=== PATIENT | male | born 1985 | race African-American/Black ===

== ENCOUNTER 2016-12-21 02:45 | Inpatient (IN) | payer MEDICARE ==
[~2016-12-21] VITALS: Ht 175.3 cm; Wt 69.4 kg
[2016-12-21 02:53] VITALS: BP 127/80
[2016-12-21] MEDS ORDERED: RISP0.5T PO (02:57)
[2016-12-21] MEDS ORDERED: [UNRECOGNIZED DRUG - CODE] PO (02:57)
--- NOTE | 2016-12-21 03:10 | NUR ---
Patient ambulated to bed 03.
--- NOTE | 2016-12-21 03:24 | NUR ---
[place] [employer] AT BEDSIDE EVALUATING PT.
[2016-12-21 03:25] LABS: HEMATOCRIT 46.4 % (36-52); HEMOGLOBIN 15.2 g/dL (12.0-18.0); MEAN CORPUSCULAR HEMOGLOBIN 31 pg (27-31); MEAN CORPUSCULAR HGB CONC 33 g/dL (33-37); MEAN CORPUSCULAR VOLUME 96 fL (80-94); PLATELET COUNT (AUTO) 263 K/uL (140-450); RED BLOOD CELL COUNT(AUTO) 4.83 MIL/uL (4.20-6.10); RED CELL DISTRIBUTION WIDTH 12.6 % (11.6-13.7); WHITE BLOOD COUNT (AUTO) 5.3 K/uL (4.8-10.8)
--- NOTE | 2016-12-21 03:26 | NUR ---
31 Y/O M W/C/O HEARING VOICES X2 DAYS "VOICES ARGURING WITH EACH OTHER" SUICIDAL IDEATION. DENIES ANY PAIN, VSS. ER MD MADE AWARE.HX SCHIZOPHRENIA, DEPRESSION
[2016-12-21 03:35] LABS: ANION GAP 12.9 (8-16); CARBON DIOXIDE 27.9 mmol/L (21-32); CHLORIDE 102 mmol/L (98-107); CREATININE 1.1 mg/dL (0.7-1.3); EOSINOPHILS % (MANUAL) 5 % (0-4); GFR ARICAN-AMERICAN 100 mL/min (>90); GLUCOSE 106 mg/dL (74-106); LYMPHOCYTES % (MANUAL) 59 % (20-46); MONOCYTES % (MANUAL) 3 % (5-12); POTASSIUM 3.8 mmol/L (3.5-5.1); SODIUM SERUM 139 mmol/L (136-145); UREA NITROGEN, BLOOD 15 mg/dL (7-18)
[2016-12-21 03:41] LABS: ALBUMIN 4.9 g/dL (3.4-5.0); ASPARTATE AMINOTRANSFERASE 22 U/L (15-37); SALICYLATE 5.1 mg/dL (2.8-20.0); TOTAL BILIRUBIN 0.5 mg/dL (0.0-1.0)
--- NOTE | 2016-12-21 03:41 | NUR ---
Pt placed on 5150 hold by [place] [employer] by Officer Aidan.
[2016-12-21 03:43] LABS: ACETAMINOPHEN < 0.5 ug/ml (10-30)
[2016-12-21] MEDS ORDERED: risperiDONE 1 MG TAB PO SCH (03:50)
[2016-12-21] MEDS ORDERED: OXcarbazepine 150 MG TAB PO SCH (03:50)
--- NOTE | 2016-12-21 03:59 | NUR ---
ALL BELONGS WITH [facility]
--- NOTE | 2016-12-21 04:03 | NUR ---
PT AMB WITH EMT TO [facility].
[2016-12-21 04:14] LABS: APPEARANCE,URINE CLEAR (CLEAR); BILIRUBIN,URINE NEGATIVE (NEGATIVE); BLOOD, URINE TRACE-I (NEGATIVE); COLOR,URINE YELLOW (YELLOW); LEUKOCYTE ESTERASE ,URINE NEGATIVE (NEGATIVE); NITRITE, URINE NEGATIVE (NEGATIVE); UGLUCOSE NEGATIVE (NEGATIVE)
--- NOTE | 2016-12-21 04:19 | NUR ---
MEDS NOT AVAILABLE ON FLOOR. HOUSE SUP NOTIFIED.
[2016-12-21 04:20] LABS: BARBITURATE, URINE NEG. ng/ml (NEG <=200); BENZODIAZEPINE, URINE NEG. ng/mL (NEG <=200); CANNABINOID, URINE NEG. ng/mL (NEG <=50); COCAINE, URINE NEG. ng/mL (NEG <=300); OPIATE, URINE NEG. ng/mL (NEG <=2000); PHENCYCLIDINE SCREEN,URINE NEG. ng/mL (NEG <=25)
[2016-12-21 04:26] LABS: RBC,URINE 3-10 (FEW) /HPF (0-5); URINE AMORPHOUS URATE 3+ /HPF (None Seen); WBC,URINE 0-5 (RARE) /HPF (0-5)
[2016-12-21] MEDS ORDERED: risperiDONE 1 MG TAB ONE (04:43)
--- NOTE | 2016-12-21 04:45 | NUR ---
TRILEPTAL NOT AVAILABLE IN HOSPITAL. ER NOTIFIED. PER DR PINEDA TO CALL PHARMACY TO REFILL MED. HOUSE SUP NOTIFIED.
--- NOTE | 2016-12-21 05:11 | NUR ---
PT RESTING IN BED, CALM, NO S/S OF DISTRESS NOTED AT THE MOMENT, WILL CONT TO MONITOR.
--- NOTE | 2016-12-21 06:34 | NUR ---
Patient will be admitted to care of DR DOWNING. Admited to TELEMETRY. Will go to room 110B. Belongings list completed. Report to SHARLA CHAVIRA.
[2016-12-21] MEDS ORDERED: NACL 0.9% 1,000 ML IV SCH (06:37)
[2016-12-21] MEDS ORDERED: HYDROcodone/APAP 7.5/325 MG 1 TAB PO PRN ×2 (06:40→11:35)
[2016-12-21] MEDS ORDERED: ONDANSETRON 4 MG/2 ML VIAL IVP PRN ×2 (06:40→11:35)
[2016-12-21] MEDS ORDERED: ACETAMINOPHEN 325 MG TAB PO PRN ×2 (06:40→11:35)
[2016-12-21 07:10] LABS: PROTHROMBIN TIME 10.7 secs (10.8-13.4)
--- NOTE | 2016-12-21 07:10 | NUR ---
Pt report given to SHARLA BERGMAN. Transfer of care at this time.
--- NOTE | 2016-12-21 07:13 | NUR ---
RECEIVED REPORT TO SHARLA GALICIA.
--- NOTE | 2016-12-21 07:15 | NUR ---
X RAY AT BEDSIDE.
[2016-12-21 07:17] LABS: CHOL/HDL RATIO 3.3 (1-4.5); FREE T4 (FREE THYROXINE) 1.04 ng/dL (0.76-1.46); MAGNESIUM 1.8 mg/dL (1.8-2.4); PHOSPHORUS 4.3 mg/dL (2.5-4.9); THYROID STIMULATING HORMONE 0.88 uIU/mL (0.34-3.74)
--- NOTE | 2016-12-21 07:30 | NUR ---
RECEIVED REPORT FROM THE SALES DEVELOPMENT EXECUTIVE NURSE. PT NOT ON UNIT YET, STILL IN ER. WILL GET ROOM READY AND AWAIT PT'S ARRIVAL.
--- NOTE | 2016-12-21 07:49 | NUR ---
Residents evaluating patient at bedside.
--- NOTE | 2016-12-21 08:05 | NUR ---
PT ARRIVED ON THE UNIT IN A RNEY WITH 2 ER NURSES. PT AMBULATED FROM GURNEY TO BED. TELE MONITOR ADMINISTERED. SKIN INTACT. MRSA SCREENING DONE. V/S WITHIN NORMAL RANGE. ALLERGY BAND ADMINISTERED. BROWN SOCKS ON. IV SITE ON R AC 22G SL. EVERYTHING REMOVED FROM ROOM. NO PERSONAL BELONGINGS. IT IS WITH SECURITY. SITTER IN THE ROOM. PT JUST WANTS TO SLEEP. WILL START ON ADMISSION PROCESS.
[2016-12-21 09:00] VITALS: BP 100/62
[2016-12-21] MEDS ORDERED: DOCUSATE SODIUM 100 MG GELCAP PO SCH (09:00)
[2016-12-21] MEDS ORDERED: PANTOPRAZOLE 40 MG INJ VIAL IVP SCH (09:00)
[2016-12-21] MEDS ORDERED: NICOTINE TRANSD SYS 14 MG/24 HR PATCH TD SCH (09:00)
--- NOTE | 2016-12-21 09:18 | NUR ---
ADMINISTERED MORNING MED. PT REFUSED NICOTINE PATCH AND COLACE. SPOKE TO MD CEBALLOS FLUIDS. MD WILL D/C ORDER. SITTER IN THE ROOM. WILL CONTINUE TO MONITOR PT.
--- NOTE | 2016-12-21 11:07 | NUR ---
PT SLEEPING. SITTER IN THE ROOM. NO SIGNS OF DISTRESS. WILL CONTINUE TO MONITOR PT.
--- NOTE | 2016-12-21 11:28 | NUR ---
Social Service Note: Per Misty from [facility] , patient may go to [facility] [address] [place] [address] [address], accepting physician is , bed number 1012 C, phone number for report , Misty stated they would like patient to be transfer to their facility as soon as possible, charge nurse Merlene and case planner Shin wolfe.
--- NOTE | 2016-12-21 11:53 | NUR ---
PT SLEEPING SOUNDLY. WOKE PT UP TO GET V/S. PT COOPERATIVE. DENIES HEARING VOICES. JUST SLEEPY. SITTER AT BEDSIDE. WILL CONTINUE TO MONITOR PT.
[2016-12-21 12:00] VITALS: BP 128/72
--- NOTE | 2016-12-21 12:12 | NUR ---
CM NOTE INITIAL REVIEW FAXED TO [facility] (FAX# [phone], C: [phone]) AND [facility] (FAX# [phone], C: [phone], OPT. 1, 3, 7).
--- NOTE | 2016-12-21 13:37 | NUR ---
DR. RIOS WAS HERE EARLIER. ASSESSED PT. AGREED, PT SHOULD GO TO [facility]. D/C IN PLACE. WILL START D/C PROCESS.
--- NOTE | 2016-12-21 14:57 | NUR ---
CM NOTE PATIENT BEING PICKED UP VIA GURNEY BY [facility] GOING TO [facility], RM 1012C. ETA 1600. DR. ONEILL & BERNIE RN MADE AWARE. AUTH# PROVIDED BY [facility] - #[id number]*PTR
--- NOTE | 2016-12-21 15:00 | NUR ---
WENT OVER D/C INSTRUCTIONS WITH PT. ANSWERED ALL QUESTIONS. PT VERBALIZED UNDERSTANDING. REMOVE IV, CANNULA INTACT. NO BLEEDING NOTED. REMOVED ID BANDS. CALLED SECURITY TO BRING PT'S BELONGINGS. ONCE IT'S HERE, HE WILL GET DRESSED AND WAIT FOR TRANSPORT. SITTER STILL IN THE ROOM WITH PT.
[2016-12-21] MEDS ORDERED: LORazepam 2 MG/ML VIAL IVP PRN (15:15)
[2016-12-21] MEDS ORDERED: THIA-8 PO (15:22)
[2016-12-21] MEDS ORDERED: MULT-405 PO (15:22)
[2016-12-21] MEDS ORDERED: FOLI1TAB90 PO (15:22)
[2016-12-21] MEDS ORDERED: LORA-476 PO (15:22)
--- NOTE | 2016-12-21 15:30 | NUR ---
GAVE REPORT TO SHARLA VALDIVIA AT [facility] [phone]. THEY ARE AWARE OF TRANSPORT TIME 1600. DR. ANNA ACCEPTING. PT IS TO GO TO 1012C.
--- NOTE | 2016-12-21 16:20 | NUR ---
[facility] IS HERE TO CNC PROGRAMMER PT AND TRANSFER HIM TO [facility]. PT IS IN A GURNEY ACCOMPANIED BY 2 TRANSPORTERS. PT IS IN STABLE CONDITION. PERSONAL BELONGING W/ PT. WHEELED OUT.
[2016-12-21] MEDS ORDERED: LORazepam 1 MG TAB PO SCH (21:00)
[2016-12-22] MEDS ORDERED: PANTOPRAZOLE 40 MG TABEC PO SCH (06:30)
[2016-12-22] MEDS ORDERED: DOCUSATE SODIUM 100 MG GELCAP PO SCH (09:00)
[2016-12-22] MEDS ORDERED: THIAMINE 100 MG TAB PO SCH (09:00)
[2016-12-22] MEDS ORDERED: MULTIVITAMIN 1 TAB PO SCH (09:00)
[2016-12-22] MEDS ORDERED: FOLIC ACID 1 MG TAB PO SCH (09:00)
== END 2016-12-21 16:20 | DRG 775 ==
LOC: MED 02:45 → MTU 06:44
PROVIDERS: ADMIT Family Medicine; ATTEND Family Medicine
DX: F10.129 Alcohol abuse with intoxication, unspecified (principal); N17.0 Acute kidney failure with tubular necrosis; G92 Toxic encephalopathy; R45.851 Suicidal ideations; F20.0 Paranoid schizophrenia; R80.9 Proteinuria, unspecified; Y90.2 Blood alcohol level of 40-59 mg/100 ml; F15.10 Other stimulant abuse, uncomplicated; R31.9 Hematuria, unspecified; F17.210 Nicotine dependence, cigarettes, uncomplicated; F20.5 Residual schizophrenia; R00.0 Tachycardia, unspecified; E78.5 Hyperlipidemia, unspecified; Z88.0 Allergy status to penicillin; Z56.0 Unemployment, unspecified; Z91.14 Patient's other noncompliance with medication regimen
CPT/HCPCS: 36415; 71010; 76770; 80053; 80305; 81001; 82140; 82150; 83036; 83690; 83735; 83880; 84100; 84439; 84443; 84484; 85025; 85610; 85730; 87081; 93005; 99285; C9113; G0480; G0482; Q0092